=== PATIENT | female | born 1995 | race African-American/Black ===

== ENCOUNTER 2017-04-25 14:17 | Emergency (ER) | payer MEDICAID ==
[~2017-04-25] VITALS: Ht 157.5 cm; Wt 42.6 kg
[2017-04-25 14:32] VITALS: BP 98/53
== END 2017-04-25 21:00 | disposition home or self-care (01) ==
LOC: ER 14:17
DX: R51 Headache (principal); N91.2 Amenorrhea, unspecified; Z32.02 Encounter for pregnancy test, result negative
CPT/HCPCS: 36415; 84702